=== PATIENT | female | born 1940 | race Caucasian/White ===

== ENCOUNTER 2022-04-19 22:38 | Emergency (ER) | payer OTHER ==
[~2022-04-19] VITALS: Ht 162.6 cm; Wt 108.9 kg
[2022-04-19 22:38] VITALS: BP 0/0
--- NOTE | 2022-04-19 22:38 | NUR ---
22.34 PM - Patient BIB by ALS from [facility]. Patient arrived, full arrest, no pulse, Asystole. Started CPA and called code blue. (see code blue record)
--- NOTE | 2022-04-19 23:19 | NUR ---
CONTACTED [facility]ON[facility] OFFICE
--- NOTE | 2022-04-19 23:36 | NUR ---
NOTIFIED [facility] PRIOR TO RETURN CALL FROM [facility] Addendum: 04/20/22 at 0002 by [email or web address] [facility] WILL NOT BE MOVING FORWARD. REF# [id number]
--- NOTE | 2022-04-20 02:10 | NUR ---
[facility] OFF[facility] RELEASING BODY OF PT @0231 REF# [id number], NICO
--- NOTE | 2022-04-20 02:50 | NUR ---
ATTEMPTED TO CALL PT'S PCP, DR GIOVANNA MONTGOMERY AT . THE PHYSICIAN'S OFFICE DOES NOT OFFER VOICEMAIL SERVICE TO NOTIFY PCP OF PT'S CONDITION.
--- NOTE | 2022-04-20 03:20 | NUR ---
CALLED [facility] TO ARRANGE FOR WEB MASTER
--- NOTE | 2022-04-20 03:20 | NUR ---
NOTIFIED BARBARA GUERRERO OF PT'S . SPOKE WITH TU.
--- NOTE | 2022-04-20 06:46 | NUR ---
pt body moved to rm 128 Addendum: 04/20/22 at 0646 by [email or web address] documentation in bed 13 chart
--- NOTE | 2022-04-20 07:29 | NUR ---
gave transfer of care report to kathy buitrago
--- NOTE | 2022-04-20 08:53 | NUR ---
MRS. HERNANDEZ CHART GIVEN TO ZENOBIA KINCAID
== END 2022-04-19 22:48 ==
LOC: MED 22:38
DX: I46.9 Cardiac arrest, cause unspecified (principal); J96.00 Acute respiratory failure, unspecified whether with hypoxia or hypercapnia
CPT/HCPCS: 31500; 92950; 99291; 99292